=== PATIENT | male | born 1965 | race Caucasian/White ===

== ENCOUNTER 2018-10-02 09:13 | Inpatient (IN) | payer BC ==
--- NOTE | 2018-10-02 10:15 | ED ---
Back Pain - HPI Summary HPI Summary: This pt is a 53 y/o male presenting to [facility] via EMS for gradually worsening right hip pain for the past few days. Pt reports that his pain began 4 days ago with right hip pain and right buttock pain radiating down his right knee. Denies fall or trauma. He notes that he saw a chiropractor yesterday who reported he had inflammation in his SI joint. Pt notes that this morning his pain worsened significantly and had a difficult time ambulating to the bathroom secondary to pain. He describes his right buttock pain radiating down the hamstring in front of his leg and down his right knee. His pain is aggravated with sitting down and standing up and it is alleviated with lying down. Denies weakness, numbness, tingling, urinary or fecal dysfunction, saddle anesthesia, chest pain, SOB. Pt notes he is from [place] and is supposed to fly back in 3 days, an 8 hour flight. PMHx: back problems since 2002, anxiety, sleep apnea. Pt sleeps with a CPAP. - History of Current Complaint Chief Complaint: EDExtremityLower Stated Complaint: FALL HIP PAIN Time Seen by Provider: 10/02/18 09:45 Hx Obtained From: Patient Onset/Duration: Lasting Days, Still Present Onset/Duration: Started Days Ago, Still Present Timing: Lasting Days Back Pain Location: Is Discrete @ - right hip, Radiates To - right knee Severity Currently: Moderate Pain Intensity: 4 Pain Scale Used: 0-10 Numeric Character: Aching Aggravating Symptom(s): Walking, Other - sitting down Alleviating Symptom(s): Other - lying down Associated Signs And Symptoms: Negative: Fever, Weakness, Numbness, Tingling, Abdominal Pain, Bladder Incontinence, Bowel Incontinence - Allergies/Home Medications Allergies/Adverse Reactions: Allergies Allergy/AdvReac Type Severity Reaction Status Date / Time No Known Allergies Allergy Verified 10/02/18 09:27 Home Medications: Home Medications Tadalafil [Cialis] 5 mg PO DAILY 10/02/18 [History Confirmed 10/02/18] buPROPion SR TAB* [Wellbutrin SR TAB*] 150 mg PO DAILY 10/02/18 [History Confirmed 10/02/18] PMH/Surg Hx/FS Hx/Imm Hx Endocrine/Hematology History: Denies: Hx Diabetes Respiratory History: Reports: Hx Sleep Apnea GI History: Reports: Hx Gastroesophageal Reflux Disease Musculoskeletal History: Reports: Hx Back Problems - since 2002 Psychiatric History: Reports: Hx Anxiety - Surgical History Surgery Procedure, Year, and Place: Surgery for acid reflux Infectious Disease History: No Infectious Disease History: Denies: Traveled Outside the [place] in Last 30 Days - Family History Known Family History: Positive: Hypertension Family History: Mother with stroke - Social History Alcohol Use: None Substance Use Type: Reports: None Smoking Status (MU): Never Smoked Tobacco Review of Systems Negative: Fever, Chills Negative: Chest Pain Negative: Shortness Of Breath Negative: incontinence - urinary or fecal Musculoskeletal: Other - POS: right hip pain, right buttock pain radiating to right knee Neurological: Other - NEGATIVE: saddle anesthesia, urinary or fecal dysfunction Negative: Weakness, Paresthesia, Numbness All Other Systems Reviewed And Are Negative: Yes Physical Exam - Summary Physical Exam Summary: VITAL SIGNS: Reviewed. GENERAL: Patient is a well-developed and nourished male who is lying comfortable in the stretcher. Patient is not in any acute respiratory distress. HEAD AND FACE: No signs of trauma. No ecchymosis, hematomas or skull depressions. No sinus tenderness. EYES: PERRLA, EOMI x 2, No injected conjunctiva, no nystagmus. EARS: Hearing grossly intact. Ear canals and tympanic membranes are within normal limits. MOUTH: Oropharynx within normal limits. NECK: Supple, trachea is midline, no adenopathy, no JVD, no carotid bruit, no c- spine tenderness, neck with full ROM. CHEST: Symmetric, no tenderness at palpation LUNGS: Clear to auscultation bilaterally. No wheezing or crackles. CVS: Regular rate and rhythm, S1 and S2 present, no murmurs or gallops appreciated. ABDOMEN: Soft, non-tender. No signs of distention. No rebound, no guarding, and no masses palpated. Bowel sounds are normal. MSK: FROM in all major joints, no edema, no cyanosis or clubbing. RLE: Tenderness over the right gluteus. Straight leg raise is positive at about 45 degrees on the right. No dropped foot. Good pulses. Good femoral pulses. No weakness. NEURO: Alert and oriented x 3. No acute neurological deficits. Speech is normal and follows commands. SKIN: Dry and warm Triage Information Reviewed: Yes Vital Signs On Initial Exam: Initial Vitals Temp Pulse Resp BP Pulse Ox 98.9 F 84 14 141/88 99 10/02/18 09:15 12 09:15 10/02/18 09:15 10/02/18 09:15 10/02/18 09:15 Vital Signs Reviewed: Yes Diagnostics - Vital Signs Vital Signs Temp Pulse Resp BP Pulse Ox 10/02/18 09:15 98.9 F 84 14 141/88 99 - Laboratory Result Diagrams: 10/02/18 10:30 10/02/18 10:30 Lab Statement: Any lab studies that have been ordered have been reviewed, and results considered in the medical decision making process. - Radiology Hip/Pelvis XR Radiology Interpretation Completed By: Radiologist Summary of Radiographic Findings: IMPRESSION: Mild to moderate bilateral hip osteoarthritis. No radiographic evidence for RIGHT hip fracture. Dr. Downey has reviewed this report. Lumbar spine XR Radiology Interpretation Completed By: Radiologist Summary of Radiographic Findings: IMPRESSION: Negative for fracture or malalignment. Mild multilevel degenerative spondylosis. Facet joint osteoarthritis. Dr. Downey has reviewed this report. Re-Evaluation - Re-Evaluation First Eval Re-Evaluation Time: 11:43 Comment: I tried to ambulate the pt but he is unable to. Back Pain Course/Dx - Course Assessment/Plan: This pt is a 53 y/o male presenting to [facility] via EMS for gradually worsening right hip pain for the past few days. Pt reports that his pain began 4 days ago with right hip pain and right buttock pain radiating down his right knee. Denies fall or trauma. He notes that he saw a chiropractor yesterday who reported he had inflammation in his SI joint. Pt notes that this morning his pain worsened significantly and had a difficult time ambulating to the bathroom secondary to pain. He describes his right buttock pain radiating down the hamstring in front of his leg and down his right knee. His pain is aggravated with sitting down and standing up and it is alleviated with lying down. Denies weakness, numbness, tingling, urinary or fecal dysfunction, saddle anesthesia, chest pain, SOB. Pt notes he is from [place] and is supposed to fly back in 3 days, an 8 hour flight. PMHx: back problems since 2002, anxiety, sleep apnea. Pt sleeps with a CPAP. Patient denies any urinary or bowel dysfunction. He denied any saddle anesthesia. He declined a rectal exam. Hip x ray Impression: Mild to moderate bilateral hip joint osteoarthritis. No radiographic evidence of right hip fracture. Lumbar spine X -ray: impression: Negative for fracture or malalignment. Mild multilevel degenerative spondylolysis. Facet joint osteoarthritis. In the ED course the patient was given Toradol, Flexeril, Decadron and fentanyl 2. However the patient reports that he is still having a lot of pain in the right gluteus going into the right leg. I tried to ambulate the patient myself and he is unable to ambulate. Therefore I decided to get an MRI of the lumbar spine and right hip. At this time the patient is waiting for these tests to be done. The patient will be signed out to Dr. Balderas to review the MRI templates and disposition of this patient. - Diagnoses Differential Diagnosis/HQI/PQRI: Positive: Arthritis, Cauda Equina Syndrome, Compressive Cord Syndrome, Epidural Abscess, Herniated Disc, Strain, Sprain Provider Diagnoses: Back pain, Hip pain Discharge - Sign-Out/Discharge Documenting (check all that apply): Sign-Out Patient Signing out patient TO: Rishi Balderas - pending MRIs - Discharge Plan Referrals: [facility] [Outside] - Attestation Statements Document Initiated by Iris: Yes Documenting Scribe: Candy Vizcaino Provider For Whom Iris is Documenting (Include Credential): Delonte Downey MD Scribe Attestation: Candy Jurado, scribed for Delonte Downey MD on 10/02/18 at 1248. Scribe Documentation Reviewed: Yes Provider Attestation: The documentation as recorded by the Candy marrero accurately reflects the service I personally performed and the decisions made by me, Delonte Downey MD Status of Scribe Document: Viewed
[2018-10-02] MEDS ORDERED: fentaNYL* 50 MCG/ML 2 ML VIAL (100 MCG VIAL) IV SLOW PU ONE ×2 (10:16→11:39)
[2018-10-02] MEDS ORDERED: Orphenadrine Citrate IV* 30 MG/ML 2 ML VIAL IV ONE (10:16)
[2018-10-02] MEDS ORDERED: Dexamethasone IV* 4 MG/ML 1 ML (4 MG) IV SLOW PU ONE (10:16)
[2018-10-02] MEDS ORDERED: Ketorolac INJ* 30 MG/ML 1 ML VIAL IV PUSH ONE (10:16)
[2018-10-02 10:46] LABS: ABS Basophils 0 10^3/ul (0-0.2); ABS Eosinophils 0 10^3/ul (0-0.6); ABS Lymphocytes 1.1 10^3/ul (1.0-4.8); ABS Monocytes 0.4 10^3/ul (0-0.8); ABS Nucleated RBC 0 10^3/ul; Eosinophil % 0.4 %; Hematocrit 43 % (42-52); Hemoglobin 14.2 g/dl (14.0-18.0); Lymphocyte % 23.7 %; Mean Corpuscular HGB Conc 33 g/dl (31-36); Mean Corpuscular Hemoglobin 29 pg (27-31); Mean Corpuscular Volume 88 fL (80-94); Mean Platelet Volume 7.7 fL (7.4-10.4); Nucleated Red Blood Cells % 0.1; Platelet Count 179 10^3/ul (150-450); Red Blood Count 4.88 10^6/ul (4.00-5.40); Red Cell Distribution Width 14 % (10.5-15); White Blood Count 4.5 10^3/ul (3.5-10.8)
[2018-10-02 11:11] LABS: EGFR Non-African American 98.9 (>60)
[2018-10-02] MEDS ORDERED: LORazepam INJ* 2 MG/ML 1 ML VIAL IV PUSH ONE (12:13)
[2018-10-02 13:00] LABS: Urine Appearance Clear; Urine Blood Negative (Negative); Urine Color Yellow; Urine Ketones Negative (Negative); Urine Protein Negative (Negative); Urine Specific Gravity 1.027 (1.010-1.030); Urine Urobilinogen Negative (Negative)
--- NOTE | 2018-10-02 13:07 | ED ---
Progress - Progress Note Progress Note: This pt was signed out by Dr. Downey, pending disposition, awaiting MRI lumbar spine and MRI right hip. MRI of Lumbar Spine, as read by radiologist IMPRESSION: 1. Facet osteoarthritis with degenerative disc disease most pronounced along the lower lumbar spine. 2. There is multilevel neuroforaminal narrowing as described above. 3. There is mild narrowing of central canal at L4-L5 and L3-L4. 4. There is mild subarticular edema within the pedicles of L4 and L5 on the right suggestive of reactive edema in the setting of facet osteoarthritis. MRI of Right Hip, as read by radiologist IMPRESSION: No evidence for hip or pelvic fracture. RIGHT unilateral adductor longus tendinopathy at the origin from the os pubis. Mild to moderate bilateral hip joint osteoarthritis. Dr. Balderas has reviewed these reports. Re-Evaluation - Re-Evaluation First Eval Re-Evaluation Time: 16:19 Change: Unchanged Comment: I reviewed the MRI results with the pt. He reports he is unable to ambulate secondary to his pain. Course/Dx - Course Course Of Treatment: This pt was signed out by Dr. Downey, pending disposition, awaiting lumbar spine MRI and right hip MRI. Pt is living out of a hotel room and has no assistance here. He is unable to stand up and is unable to ambulate at this time. I discussed the case with Dr. Harrison, hospitalist, who accepted the pt for admission. - Diagnoses Provider Diagnoses: Intractable pain, Sciatica - Provider Notifications Discussed Care Of Patient With: Obed Harrison - hospitalist Time Discussed With Above Provider: 16:46 Instructed by Provider To: Admit As Inpatient Discharge - Sign-Out/Discharge Documenting (check all that apply): Patient Departure - [place] [facility] [place] Receiving patient FROM: Delonte Downey - Discharge Plan Condition: Stable Disposition: ADMITTED TO [facility] Referrals: [facility] [Outside] - Attestation Statements Document Initiated by Scribe: Yes Documenting Scribe: Candy Vizcaino Provider For Whom Scribe is Documenting (Include Credential): Rishi Balderas MD Scribe Attestation: Candy Jurado, scribed for Rishi Balderas MD on 10/02/18 at 1652. Status of Scribe Document: Ready
[2018-10-02] MEDS ORDERED: oxyCODONE/Acetamin 5/325 MG* TAB PO ONE (16:20)
[2018-10-02] MEDS: Lidocaine PATCH 5%* 1 PATCH TRANSDERM SCH (16:31)
[2018-10-02] MEDS ORDERED: Acetaminophen TAB* 325 MG PO PRN (17:24)
[2018-10-02] MEDS ORDERED: Morphine INJ* 2 MG/ML 1 ML SYRINGE (TWO MG - NEW SYRINGE VERSION) IV PRN (17:24)
[2018-10-02] MEDS ORDERED: Ondansetron INJ* 2 MG/ML VIAL IV PRN (17:24)
[2018-10-02] MEDS: oxyCODONE/Acetamin 5/325 MG* TAB PO PRN (20:02)
--- NOTE | 2018-10-02 20:02 | HP ---
AMENDED REPORT NOW INCLUDES COSIGNER DESIGNATION CC: Dr. Roth, [facility], [place], [place] * HISTORY AND PHYSICAL: DATE OF ADMISSION: 10/02/18 PROVIDER: Carole Toure NP ATTENDING PHYSICIAN WHILE IN THE HOSPITAL: Dr. Obed Harrison * (dictated by Carole Toure NP). CHIEF COMPLAINT: Lower back pain. HISTORY OF PRESENT ILLNESS: Mr. Roberts is a 53-year-old male with past medical history significant for sleep apnea, anxiety, enlarged prostate, who presented to the emergency room with lower back pain, unable to sit and stand. The patient reports that he has had lower back pain on and off since the end of July. He states on Monday, his lower back pain became progressively worse radiating into his groin, down his inner thigh, and down his posterior thigh, lateral side of his right calf to the top of his foot with standing and sitting. He reports the pain as being sharp and stabbing in nature, worse with standing and sitting. He denies any saddle anesthesia. Denies any bowel or bladder incontinence. Denies any recent fever or chills. Denies any diarrhea or abdominal pain. Denies any cough, congestion, hemoptysis, or shortness of breath. Denies any chest pain or edema. Denies any fever or chills. Denies any gross hematuria or dysuria. Denies any focal weakness or sensory loss. The patient denies any dysphagia. He does complain of point tenderness to the right hip as well. PAST MEDICAL HISTORY: Significant for: 1. Sleep apnea, uses CPAP at night. 2. Anxiety. 3. Enlarged prostate. 4. Umbilical hernia. PAST SURGICAL HISTORY: 1. In October of 1999, he had Adonis fundoplication. 2. Cholecystectomy. HOME MEDICATIONS: Include: 1. Wellbutrin 150 mg p.o. daily. 2. Cialis 5 mg p.o. daily. 3. Multivitamin 1 tablet p.o. daily. 4. Fiber tablets. 5. Probiotics. 6. B12. FAMILY HISTORY: Mother with a history of stroke. Father with a history of hypertension. No diabetes or cancer within the family. SOCIAL HISTORY: Denies any tobacco, alcohol, or illicit drug use. He is currently employed for the [employer]. He is . He lives in [place]. Surrogate decision maker in the event he is unable to make his own decisions is his , Juana Roberts. Her phone number is [phone]. He is a full code. REVIEW OF SYSTEMS: There was no documented fever. There is no unintended weight loss. No chest pain. No edema. No cough, hemoptysis, or shortness of breath. Denies any nausea, vomiting, or diarrhea. Denies any abdominal pain. Denies any gross hematuria or dysuria. Denies any focal weakness or sensory loss. Denies any visual complaints. Denies any dysphagia. He does complain of point tenderness to the right hip at the SI joint area as well as pain to the right groin, right inner thigh, and down the right posterior thigh and lateral lower leg as well radiates to the top of the foot. Denies any rashes or lesions. Denies any psychosis or anxiety. He denies any recent injury. Denies any bowel or bladder incontinence. He states that he has had lower back pain on and off since July. PHYSICAL EXAMINATION GENERAL: At this time, Mr. Roberts is a 53-year-old male. He appears well, sitting on the stretcher. He is obese. He does not appear to be in any acute distress. VITAL SIGNS: Blood pressure 158/96, heart rate is 96, respirations are 19, O2 saturation 93% to 95% on room air, temp was 98.9. HEENT: Head is atraumatic, normocephalic. Eyes: EOMs are intact. Sclerae anicteric and not pale. Oral mucosa appeared to be moist. NECK: Supple. LUNGS: Clear to auscultation bilaterally. No wheeze, rales, or rhonchi. CARDIAC: S1, S2. Regular rate and rhythm. No murmurs, rubs, or gallops. ABDOMEN: Obese, soft, nontender. Bowel sounds are present x4. BACK: He does have point tenderness to the right SI joint and shooting pain with straight leg lift on the right. EXTREMITIES: Pedal pulses are +2 bilaterally. He is able to move all 4 extremities with 5/5 strength. NEUROLOGIC: He is awake, alert, and oriented x3. Tongue is midline. Speech is clear. There are no gross focal deficits. SKIN: Intact. DIAGNOSTIC STUDIES/LAB DATA: WBCs are 4.5, RBCs 4.88, hemoglobin 14.2, hematocrit is 43, platelet count 179. ESR is 11. Sodium 141, potassium 3.9, chloride 107, carbon dioxide was 27, anion gap was 7, BUN was 12, creatinine 0.81, glucose was 106, lactic acid 0.7, calcium 9.3. ASTs were 20, ALTs were 21 , alkaline phosphatase 46. C-reactive protein was 1.11. Urine was within normal limits, pH was 5.0, specific gravity 1.027. He had hip and pelvis x-ray. There is mild narrowing of the central canal at L4 -L5 and L3-L4. There is mild subarticular edema within the pedicles of L4 and L5 on the right suggestive of reactive edema in the setting of facet osteoarthritis. He had a right hip MRI. No evidence of right pelvic fracture. Right unilateral adductor longus tendinopathy in the origin of the os pubis, mild-to- moderate bilateral hip joint osteoarthritis. ASSESSMENT AND PLAN: Mr. Roberts is a 53-year-old male, who presented to the emergency room with complaints of lower back pain since Monday, progressively worsening, unable to sit and stand due to increased pain. He will be admitted under observation for: 1. Lower back pain. I suspect this is related to degenerative changes in his back as well as bulging disk and foraminal narrowing. There is some surrounding edema shown on MRI. He did receive Decadron 8 mg in the emergency room. I will consult Neurosurgery. Dr. Aj has been contacted. We will continue with Decadron 8 mg for the inflammation. I will give him morphine as needed for pain or he can have oxycodone 10 mg/325 as needed for severe pain. I have ordered physical therapy. 2. Anxiety. We will continue on Wellbutrin as previously prescribed. 3. Enlarged prostate. The patient will continue on Cialis as previously prescribed. 4. Sleep apnea. The patient does wear CPAP at night with the settings at 13. He will continue with CPAP at night. 5. DVT prophylaxis. I will place him on heparin subcu. 6. Diet. He can have a regular diet. 7. Code status. He is a full code. TIME SPENT: Time spent on this admission was 60 minutes, greater than half that time was spent [id number] with the patient obtaining my history and physical, the other half of the time was spent going over my plan of care and implementing my plan of care. I did discuss this with my attending, Dr. Obed Harrison, and he is in agreement with my plan. CAROLE TOURE, NENO [id number]/CPS #: [id number] ELIZABET
[2018-10-02] MEDS: Lidocaine Patch REMOVE* 1 NOTE MISC SCH (20:50)
[2018-10-02] MEDS: Heparin VIAL(*) 5000 UNITS/ML VIAL (FIVE THOUSAND) SUBCUT SCH (21:31)
[2018-10-02] MEDS: Morphine VIAL* 4 MG/ML VIAL (1 ml vial) IV PRN (21:31)
[2018-10-03] MEDS: oxyCODONE TAB* 5 MG TAB PO PRN ×2 (00:25→07:38)
[2018-10-03] MEDS: Morphine VIAL* 4 MG/ML VIAL (1 ml vial) IV PRN ×4 (00:50→21:13)
[2018-10-03] MEDS: Heparin VIAL(*) 5000 UNITS/ML VIAL (FIVE THOUSAND) SUBCUT SCH ×2 (05:31→12:30)
[2018-10-03] MEDS: Dexamethasone IV* 4 MG/ML 1 ML (4 MG) IV SLOW PU SCH ×2 (07:38→21:14)
[2018-10-03] MEDS: buPROPion SR TAB.SR* 150 MG PO SCH (07:38)
[2018-10-03] MEDS: TADALAFIL 5 MG PO SCH (07:39)
[2018-10-03] MEDS: Lidocaine PATCH 5%* 1 PATCH TRANSDERM SCH (07:39)
--- NOTE | 2018-10-03 10:50 | CONS ---
CONSULTATION REPORT: DATE OF CONSULT: 10/02/18 HISTORY OF PRESENT ILLNESS: The patient is a very pleasant 53-year-old gentleman with past medical history of sleep apnea, anxiety, enlarged prostate, obesity who is currently admitted to the hospitalist service after presenting to the emergency room with lower back pain and right lower extremity pain. The patient had difficulty ambulating and standing up. I was requested to see the patient by the hospitalist service because of MRI findings consistent with L4-5 right intraforaminal disk and facet effusion. The patient reports that he started having insidious onset of pain over the last few days, especially since Monday the pain started to become worse and he had difficulty ambulating and had to be brought to the emergency room. The patient reports that he has no significant weakness in the right lower extremity. He does have numbness in the right lower extremity. The patient is not able to ambulate, he cannot even stand because of severe pain. He reports when he is trying to stand up, he has shooting pain down to his right lower extremity all the way to the dorsum of his foot. He denies urinary or GI incontinence. He denies loss of perianal sensation. 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 He is , lives with his and he has 2 sons from previous marriage and he resides in [place]. He is very concerned that he would like to return to [place] as he was scheduled to in a few days. PAST MEDICAL HISTORY: 1. Sleep apnea. 2. Anxiety. 3. BPH. 4. Umbilical hernia. PAST SURGICAL HISTORY: Adonis fundoplication. HOME MEDICATIONS: 1. Wellbutrin. 2. Cialis. 3. Multivitamin. 4. Fiber tablets. 5. Probiotics. 6. B12. FAMILY HISTORY: Stroke and hypertension. SOCIAL HISTORY: Negative for tobacco, alcohol or recreational drug use. PHYSICAL EXAM: The patient is in no acute distress. He is lying comfortably on the bed. He has no tenderness to palpation in the cervical, thoracic and lumbar spine. He has free range of motion of the cervical spine. He is awake, alert, oriented x3. His pupils are equal and reactive. Cranial nerves II through XII are grossly intact. Motor 4 to 5/5 in all extremities bilaterally. Does have some right lower extremity above the bed. Sensory grossly intact to light touch. Deep tendon reflexes +1 bilaterally. No clonus. No Babinski. Babb's negative. Straight leg test positive on the right, negative on the left. DIAGNOSTIC STUDIES: The patient had MRI of his lumbar spine revealing degenerative disk disease with disk bulging at L4-5 with right neuroforaminal stenosis with possible intraforaminal disk protrusion. There is also evidence of facet effusions in multiple levels, worse at the right L4-5. The patient has had an x-ray of his lumbar spine revealing very mild degenerative disease. IMPRESSION: The patient is a very pleasant 53-year-old gentleman with complaints of back pain radiating to the right lower extremity with MRI findings consistent with right L4-5 intraforaminal disk herniation. PLAN/RECOMMENDATIONS: The patient at this point has significant pain, although when he is resting with pain medication, he feels more comfortable. Discussed the findings of the MRI in extent. I explained to him that the intraforaminal disk herniation may be contributing to his pain. Regarding his facet effusion, this most likely could represent degenerative changes, although the possibility of infection was discussed with the patient also. We discussed several treatment options as well as the possibility of surgical intervention if conservative treatment fails. We discussed the risks and benefits of surgical intervention as well as the possibility of pain control and epidural steroid injections. The patient at this point is not interested in pursuing surgical intervention given the fact that he was scheduled to return to his home at the end of this week and would prefer to attempt conservative treatment with consideration for epidural steroid injections if possible. I have advised the patient against prolonged sleeping or prolonged trips with airplane and we discussed the risks associated with this, the patient understands. At this point, we agreed to start with conservative treatment options with the hopes to avoid surgical intervention. We will be available to discuss further surgical options if conservative treatment fails. The patient of note denied any episodes of fever, chills or sick contacts. Thank you very much for allowing us to participate in the care of this patient. Please do not hesitate to contact our office in case you have any further questions or concerns regarding this patient. [id number]/CPS #: [id number] MTDD
[2018-10-03] MEDS: Diazepam TAB(*) 5 MG PO SCH ×2 (13:03→22:48)
[2018-10-03] MEDS: Morphine TAB Extended Release (*) 15 MG TAB.ER PO SCH (13:03)
--- NOTE | 2018-10-03 16:16 | PN ---
Subjective Date of Service: 10/03/18 Interval History: HOSPITALIST PROGRESS NOTE Patient seen and examined at bedside. Care reviewed and d/w Christi Hedrick RN. He feels a little better today. He's more comfortable lying in bed, but still has severe pain with minimal movement in bed. No sensory deficits, no urinary or bowel incontinence. Family History: Unchanged from Admission Social History: Unchanged from Admission Past Medical History: Unchanged from Admission Objective Active Medications: Acetaminophen (Tylenol Tab*) 650 mg PO Q4H PRN PRN Reason: FEVER/PAIN Bupropion HCl (Wellbutrin Sr Tab*) 150 mg PO DAILY [facility] Last Admin: 10/03/18 07:38 Dose: 150 mg Dexamethasone Sodium Phosphate (Decadron Iv*) 4 mg IV SLOW PU Q12HR [facility] Last Admin: 10/03/18 07:38 Dose: 4 mg Diazepam (Valium Tab(*)) 5 mg PO Q8H [facility] Stop: 10/04/18 05:01 Last Admin: 10/03/18 13:03 Dose: 5 mg Lidocaine (Lidoderm 5% Patch*) 1 patch TRANSDERM DAILY [facility] Last Admin: 10/03/18 07:39 Dose: Not Given Morphine Sulfate (Morphine Vial*) 2 mg IV Q4H PRN PRN Reason: PAIN - SEVERE Last Admin: 10/03/18 12:31 Dose: 2 mg Morphine Sulfate (Ms Contin(*)) 15 mg PO Q12H [facility] Last Admin: 10/03/18 13:03 Dose: 15 mg Nft: Tadalafil [ (Cialis] 5 Mg) 5 mg PO DAILY [facility] Last Admin: 10/03/18 07:39 Dose: Not Given Ondansetron HCl (Zofran Inj*) 4 mg IV Q4H PRN PRN Reason: NAUSEA/VOMITING Oxycodone HCl (Roxycodone Tab*) 5 mg PO Q4H PRN PRN Reason: PAIN Last Admin: 10/03/18 07:38 Dose: 5 mg Oxycodone/Acetaminophen (Percocet 5/325 Tab*) 1 tab PO Q4H PRN PRN Reason: PAIN Last Admin: 10/02/18 20:02 Dose: 1 tab Pharmacy Profile Note (Lidocaine Patch Remove*) 1 note N/A 2100 [facility] Last Admin: 10/02/18 20:50 Dose: 1 note Vital Signs - 8 hr 10/03/18 10/03/18 10/03/18 09:21 11:17 12:31 Temperature 98.7 F Pulse Rate 77 Respiratory 18 18 18 Rate Blood Pressure 154/81 (mmHg) O2 Sat by Pulse 95 Oximetry 10/03/18 10/03/18 10/03/18 13:03 15:01 15:40 Temperature 98.1 F Pulse Rate 82 Respiratory 18 18 16 Rate Blood Pressure 129/74 (mmHg) O2 Sat by Pulse 97 Oximetry 10/03/18 15:50 Temperature Pulse Rate Respiratory 18 Rate Blood Pressure (mmHg) O2 Sat by Pulse Oximetry Oxygen Devices in Use Now: None Appearance: Morbid obese middle aged gentleman lying in bed on his left side, in NAD. Eyes: No Scleral Icterus Ears/Nose/Mouth/Throat: Mucous Membranes Moist Neck: Trachea Midline Respiratory: Symmetrical Chest Expansion and Respiratory Effort, Clear to Auscultation Cardiovascular: RRR - Normal S1 and S2 Abdominal: - - Morbid obese Neurological: Alert and Oriented x 3, NL Muscle Strength and Tone, - - Significant spasm on the right paraspinal muscles Result Diagrams: 10/02/18 10:30 10/02/18 10:30 Assess/Plan/Problems-Billing Assessment: Mr Roberts is a 53yo M with PMH of morbid obesity with BMI 43.8, SUNDAY on CPAP, BPH, umbilical hernia, anxiety, who presents with back pain radiating to RLE compatible with lumbar radiculopathy. - Patient Problems (1) Radiculopathy of lumbar region Comment: - Neurosurgery input appreciated - presentation compatible with L4-L5 intraforaminal disk herniation and lumbar radiculopathy - recommended conservative treatment with pain management and possible steroid injection. - Dr Aj advised patient a trip would increase his risk of a disk herniation requiring surgical treatment. Patient understands risks, but his goal is to have enough pain control and be able to fly back to [place] and f/u with his PCP. - Will add MS contin as long acting opiate, add Diazepam as muscle relaxer. - Anesthesia consult requested with Dr Lopez for steroid injection. - Continue Dexamethasone. (2) Anxiety Comment: - Continue Wellbutrin. (3) BPH (benign prostatic hyperplasia) Comment: - Continue Cialis. (4) SUNDAY (obstructive sleep apnea) Comment: - Continue CPAP. (5) DVT prophylaxis Comment: - SQ heparin on hold for steroid injection. - SCDs. (6) Full code status Status and Disposition: Observation for treatment of intractable back pain.
[2018-10-03] MEDS: Lidocaine Patch REMOVE* 1 NOTE MISC SCH (22:49)
[2018-10-03] MEDS: oxyCODONE/Acetamin 5/325 MG* TAB PO PRN (23:14)
[2018-10-04] MEDS: Morphine TAB Extended Release (*) 15 MG TAB.ER PO SCH ×2 (00:42→13:07)
[2018-10-04] MEDS: Diazepam TAB(*) 5 MG PO SCH (05:01)
[2018-10-04] MEDS: buPROPion SR TAB.SR* 150 MG PO SCH (08:23)
[2018-10-04] MEDS: Lidocaine PATCH 5%* 1 PATCH TRANSDERM SCH (08:25)
[2018-10-04] MEDS: Morphine VIAL* 4 MG/ML VIAL (1 ml vial) IV PRN (08:33)
[2018-10-04] MEDS: Dexamethasone IV* 4 MG/ML 1 ML (4 MG) IV SLOW PU SCH (08:33)
[2018-10-04] MEDS: TADALAFIL 5 MG PO SCH (08:57)
[2018-10-04] MEDS ORDERED: Lidocaine 1% INJ* 10 MG/ML 30 ML SDV ONE (13:11)
[2018-10-04] MEDS ORDERED: methylPREDNISolone ACETATE 80* 80 MG/ML 1 ML VIAL ONE (13:11)
[2018-10-04 16:22] VITALS: BP 154/100
--- NOTE | 2018-10-04 20:38 | PM ---
[facility] NOTE: DATE OF VISIT: 10/04/18 CHIEF COMPLAINT: Radiating right leg pain. HISTORY: The patient is a 53-year-old male, who was admitted to [facility] with intractable radiating right leg pain. The patient denies any inciting injury but states that he has been in town on business. He is originally from [place], [place], and has been here working for the [employer] and states that he developed the acute onset of right leg pain and was seen in the emergency room. He was admitted to the hospitalist service and MRI of lumbar spine and right hip were obtained. The MRI of the lumbar spine showed a L4-5 right intraforaminal disk with facet effusion. Dr. Aj recommended a lumbar epidural steroid injection because the patient is very anxious to return to [place]. PAST MEDICAL HISTORY: Significant for sleep apnea, anxiety, BPH, and umbilical hernia. PAST SURGICAL HISTORY: Significant for Adonis fundoplication. MEDICATIONS: Home medications are: 1. Wellbutrin. 2. Cialis. 3. Multivitamin. 4. Fiber tablets. 5. Probiotics. 6. B12. SOCIAL HISTORY: Does not smoke, drink, or use drugs. He is presently working for the [employer]. PHYSICAL EXAMINATION: Pleasant male, lying in bed. Vital signs are stable. He has 5/5 motor strength in his lower extremities. He is grossly intact to light touch sensation. DIAGNOSTIC STUDIES: MRI of the lumbar spine shows a right L4-5 intraforaminal disk protrusion. ASSESSMENT: Lumbar radiculopathy. PLAN: Lumbar epidural steroid injection under fluoroscopic guidance. Risks, benefits, and alternatives of the procedure were discussed with the patient. He had a chance to review the epidural information sheet and informed consent was obtained. PROCEDURE NOTE: The patient was brought over to the fluoroscopy suite and assisted to the prone position on the fluoroscopy table. The low back was prepped and draped in the usual sterile fashion. The Time Out procedure was performed and documented. Using fluoroscopy, I identified the L4-5 interspace, anesthetized the skin and subcutaneous tissue over the area with 3 ml of preservative free 1% lidocaine. Using an 18 gauge 3-1/2 inch Tuohy needle, I directed under fluoroscopic guidance to the L4-5 interspace and identified the epidural space using the loss of resistance to air technique. There was no CSF, no heme, no paresthesias noted. There was negative aspiration. 3 ml preservative free normal saline with 80 mg of Depo-Medrol was injected after frequent negative aspirations. The patient tolerated the procedure well, was brought [facility] to the [facility] in stable condition, and discharged with instructions to follow up as scheduled. Fluoroscopic images were saved. The patient will be brought back to the floor and discharged per the hospitalist 's recommendations. [id number]/[facility] #: [id number] MTDD
--- NOTE | 2018-10-05 14:01 | DS ---
CC: Christi Albert, [employer] REPAIRER, , Zhen Pantoja; Dr. Osman Chacon, Neurosurgeon, , Zhen Pantoja DISCHARGE SUMMARY: DATE OF ADMISSION: 10/02/2018. DATE OF DISCHARGE: 10/04/2018. DISCHARGE DIAGNOSIS: Intractable back pain secondary to lumbar radiculopathy and L4-L5 intraforamina l disc herniation. SECONDARY DIAGNOSES: 1. Morbid obesity with a BMI of 43.8. 2. Obstructive sleep apnea, on CPAP. 3. Benign prostatic hyperplasia. 4. Umbilical hernia. 5. Anxiety. MEDICATIONS AT THE TIME OF TRANSFER: 1. Bupropion 150 mg p.o. daily. 2. Cialis 5 mg p.o. daily. New medications: Please note that the patient received a 5-day supply from our pharmacy: 1. Percocet 5 mg/325 mg 1 to 2 tablets p.o. q.4 hours p.r.n. [id number] pain, MDD 12 tablets . 2. Medrol Dosepak 4 mg, taper as follows; 5 tablets on the first day, followed by 4, 3, 2 and 1 tabl et to complete the course. 4. MiraLAX 17 g p.o. daily. 5. MS Contin 15 mg p.o. q.12 hours. 6. Lidocaine patch 5% to lower back, 12 hours on and 12 off. 7. Diazepam 5 mg p.o. t.i.d. as needed for muscle spasm. 8. Bisacodyl 5 mg p.o. daily. HOSPITAL COURSE: Mr. Roberts is a 53-year-old male with a past medical history as above who was vi siting the area for work and developed a severe intractable back pain. The pain has been on and off since the end of July, usually associated with lifting something heavy, but resolves by itself, bu t this time the pain became progressively worse, radiating from his back to his right groin, down his inner thigh, down the posterior thigh, and lateral side of his right calf to the top of his foot to the point that he was unable to stand up. There was no focal weakness, no sensory loss and no urinar y or bowel incontinence. For more details about his presentation, I refer to his history and physica l. In the emergency room, the patient had a hip and pelvis x-ray that showed mild-to- moderate bilateral hip joint osteoarthritis with no evidence for right hip fracture. Hip MRI that showed right unilate ral adductor longus tendinopathy at the origin from the os pubis, but no evidence of hip or pelvic fr acture. MRI of the lumbar spine showed facet osteoarthritis with degenerative disc disease, most pro nounced along the lower lumbar spine with multilevel neural foraminal narrowing, mild narrowing of ce ntral canal at L4-5 and L3-4 with mild periarticular edema within the pedicles of L4 and L5 on the ri ght, suggestive of reactive edema in the setting of facet osteoarthritis. There was a broad-based di sc bulge at L4-L5 with severe right and moderate left neural foraminal narrowing. The patient was admitted to the medical floor for pain management and was seen in consultation by [facility] rosurgery (Dr. Aj). His impression was that the patient is a 53-year-old gentleman with comp laints of back pain radiating to the right lower extremity, with MRI findings consistent with a right L4-L5 intraforaminal disc herniation. Dr. Aj discussed the findings of the MRI and he felt that the intraforaminal disc herniation may be contributing to his pain. Regarding the facet effusio n, this most likely could represent degenerative changes, although the possibility of infection was d iscussed with the patient also. They discussed several treatment options as well as the possibility of surgical intervention if conservative treatment fails. They also covered the possibilities of eliza n control and epidural steroid injections. At that point, the patient was not interested in pursuing surgical intervention given the fact that he was just scheduled to return home at the end of the k and he would prefer to attempt conservative treatment with consideration for epidural steroid injec tions if possible. The patient was advised by Dr. Aj that he should avoid prolonged trips, especially airplane t rips as there is a pressure of sitting for a long time or standing for a long time, he is at risk of progression for the disc herniation and this could result in requiring emergency neurosurgery. Also, of note is the fact that the patient had no fever, chills, or any other symptoms to suggest infectio n. Anesthesiologist, Dr. Lopez, was consulted and the patient had an epidural steroid injection perform ed on 12/13/18. He received 80 mg of Depo-Medrol and the patient tolerated the procedure well. He is very anxious about discharge as he plans to return to [place] as soon as possible with family to follow up with his family care provider and Dr. Chacon when he returns home. We discussed the plans for traveling, and myself and Dr. Lopez also reinforced the risk of progressi on of the disc herniation if he has to stay seated in a plane for a long time. The patient's flores s traveled from [place] to travel back with him and at this point, their plan is to rent a van and the patient will travel on the back lying down, and he received a 5-day supply of pain medication to cont rol his pain during the trip. We had offered the option for him to stay longer to obtain better pain control and then try to mobilize with physical therapy, but the patient is very clear that he really wants to go home during the weekend to continue his treatment and management back home. We went over his diagnosis. He received a CD with the images of his MRI so he can take it to his santos rosurgeon. We talked about the side effects of opioids, especially in a patient who is opioid naive, especially considering his sleep apnea, so the patient and his are aware of the risks of sedati on, CO2 retention, and I reinforced that his compliance with CPAP is even more important now. We als o talked about opioid-induced constipation and the fact that sitting for longer periods on the toilet and straining for bowel movements can also worsen his disc herniation, so he is aware of the importa nce of compliance with his bowel regimen. They were also educated about neurological signs and sympt oms that would represent progression of disease and he is aware that if he develops significant weakn ess, significant numbness, urinary or bowel incontinence, then he would need to stop at the nearest e mergency room for further evaluation. He is aware that failure to do so can result in permanent defi cits and loss of function. All the patient's and his 's questions were answered and he is medica lly stable for discharge at this time. The patient was advised that if he goes to his hotel and deve lops severe pain again, he should return to the emergency room for further treatment. PHYSICAL EXAMINATION: Vital Signs: Temperature 98.1, heart rate 77, respiratory rate 16, oxygen sat uration is 98% on room air, blood pressure is 158/88. General: The patient is a middle-aged, obese g entleman lying in bed, in no acute distress. HEENT: Moist mucous membranes. Neuro: He is alert and oriented x3, able to move all 4 extremities, has significant pain relief after the epidural steroid i njection. DIET: Regular diet. ACTIVITIES: As tolerated. DISPOSITION: To home. STATUS WHILE IN THE HOSPITAL: Inpatient. The patient was advised that he needs to follow up with neurosurgery, physical therapy and weight los s is strongly recommended not only for his spine issues but for his overall health. TIME SPENT: Approximately 50 minutes was spent to complete this discharge on this patient. [id number]/[facility] #: [id number]
== END 2018-10-04 17:15 | disposition home or self-care (01) | DRG 347 ==
LOC: ED 09:13 → MED 17:24 → OBSVTOIN 10-03 19:55
PROVIDERS: ADMIT Internal Medicine; ATTEND Internal Medicine
PROC: 3E0R33Z Introduction of Anti-inflammatory into Spinal Canal, Percutaneous Approach (ICD-10-PCS; principal; 2018-10-04)
DX: M51.16 Intervertebral disc disorders with radiculopathy, lumbar region (principal); Z68.41 Body mass index [BMI] 40.0-44.9, adult; E66.01 Morbid (severe) obesity due to excess calories; G47.33 Obstructive sleep apnea (adult) (pediatric); N40.0 Benign prostatic hyperplasia without lower urinary tract symptoms; F41.9 Anxiety disorder, unspecified; K42.9 Umbilical hernia without obstruction or gangrene; K21.9 Gastro-esophageal reflux disease without esophagitis; M47.816 Spondylosis without myelopathy or radiculopathy, lumbar region; M16.0 Bilateral primary osteoarthritis of hip; M67.853 Other specified disorders of tendon, right hip; Z90.49 Acquired absence of other specified parts of digestive tract; Z82.49 Family history of ischemic heart disease and other diseases of the circulatory system; Z82.3 Family history of stroke
CPT/HCPCS: 36415; 62323; 72100; 72148; 77003; 80053; 81003; 83605; 85025; 85652; 86140; 94660; 99284; A9270-GY; G0378; J1040; J1100; J1644; J1885; J2060; J2270; J2360; J3010